=== PATIENT | male | born 1995 | race Caucasian/White ===

== ENCOUNTER 2017-02-05 22:11 | Emergency (ER) | payer BC ==
[2017-02-05] MEDS ORDERED: HYDROcodone/Acetaminophen 10/325 mg Tablet ONE (22:55)
[2017-02-05] MEDS ORDERED: Naproxen 500 MG TAB ONE (22:56)
[2017-02-05] MEDS ORDERED: Triple Antibiotic Oint 1 GM Packet ONE (22:56)
[2017-02-05] MEDS ORDERED: Cephalexin 500 MG CAP ONE (22:56)
[2017-02-05] MEDS ORDERED: Adacel (T-DAP) 0.5 ML VIAL ONE (22:56)
== END 2017-02-05 23:18 | disposition home or self-care (01) ==
LOC: MADERS 22:11
DX: S01.81XA Laceration without foreign body of other part of head, initial encounter (principal); F98.8 Other specified behavioral and emotional disorders with onset usually occurring in childhood and adolescence; F17.220 Nicotine dependence, chewing tobacco, uncomplicated; W50.1XXA Accidental kick by another person, initial encounter
CPT/HCPCS: 90471; 90715